=== PATIENT | male | born 2000 ===

== ENCOUNTER 2019-03-04 17:32 | Emergency (ER) | payer SELFPAY ==
[2019-03-04 17:39] VITALS: BP 121/64; PULSE 79; RESP 18; O2SAT 99
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
[2019-03-04] MEDS: Ketorolac 30 MG/ML VIAL IVP (17:53)
[2019-03-04] MEDS: Lidocaine 4% Cream 5 GM TUBE TP (17:53)
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
[2019-03-04 18:13] LABS: Abs Immature Grans 0.03 k/cumm (0.0-0.09); Absolute Basophil Count 0.01 k/cumm (0.0-0.2); Absolute Lymphocyte Count 2.27 k/cumm (1.2-3.4); Absolute Monocyte Count 0.64 k/cumm (0.11-0.7); Basophils % 0.1; Eosinophils % 1.2; HGB 15.2 g/dL (13.5-17.5); Immature Grans % 0.4; Lymphocytes % 27.5; Mean Corp. HGB Concentration 36.2 g/dL (32.0-36.0); Mean Corpuscular Hemoglobin 31.7 pg (27.0-33.0); Mean Corpuscular Volume 87.5 fL (80-95); Mean Platelet Volume 9.6 fL (8.0-11.0); Monocytes % 7.8; Platelet Count 232 x1000/uL (130-400); RBC Distribution Width 12.9 % (11.8-14.1); White Blood Cell Count 8.25 k/cumm (4.4-10.8)
[2019-03-04 18:25] LABS: ALT 24 U/L (12-78); AST 18 U/L (15-37); Albumin 4.1 g/dL (3.4-5.0); Alkaline Phosphatase 121 U/L (46-116); Anion Gap 12.2 mmol/L (3-11); BUN 23 mg/dL (7-18); Bilirubin, Total 1.7 mg/dL (0.2-1.0); CO2 23.8 mmol/L (21.0-32.0); CREATININE 0.88 mg/dL (0.70-1.30); Calcium 8.9 mg/dL (8.5-10.1); Chloride 106 mmol/L (98-107); Glucose 96 mg/dL (70-100); Potassium 3.7 mmol/L (3.5-5.1); Sodium 142 mmol/L (136-145); Total Protein 7.1 g/dL (6.4-8.2)
[2019-03-04] MEDS: Omnipaque 350 MG/ML 100 ML BTL IJ (18:27)
--- NOTE | 2019-03-04 18:33 | NUR.NOTE ---
Nursing Note: Left arm abrasion cleaned and topical lidocaine applied. Wounds to left and right knees cleaned and irrigated. Topical lidocaine applied.
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
--- NOTE | 2019-03-04 18:53 | DI.VRAD_ITS ---
EXAM: XR Left Elbow EXAM DATE/TIME: 03/04/2019 6:23 PM CLINICAL HISTORY: 18 years old, male; Pain; Elbow; Left TECHNIQUE: Imaging protocol: XR Left elbow. Views: 3 or more views. COMPARISON: No relevant prior studies available. FINDINGS: Bones/joints: No displaced fractures. Soft tissues: Mild soft tissue swelling over the olecranon bursa. IMPRESSION: No fractures or dislocations. Dictated and Authenticated by: Niraj Philip MD. Ordering:GUILLAUME Landeros MD
[2019-03-04] MEDS: Bacitracin 30 GM TUBE (19:50)
[2019-03-04 19:56] VITALS: BP 122/69; PULSE 78; RESP 18; TEMP 36.6; O2SAT 96
== END 2019-03-04 20:03 | disposition home or self-care (01) ==
LOC: ER 19:31
PROVIDERS: Emergency Provider Emergency Medicine
DX: S20.411A Abrasion of right back wall of thorax, initial encounter (principal); S20.412A Abrasion of left back wall of thorax, initial encounter; S81.011A Laceration without foreign body, right knee, initial encounter; M54.6 Pain in thoracic spine; S50.312A Abrasion of left elbow, initial encounter; V00.131A Fall from skateboard, initial encounter
CPT/HCPCS: 12001; 36415; 74177; 80053; 96374; 99285; 70450; 71260; 72125; 73080; 85025; 99284; J1885; J3490; L0172